=== PATIENT | female | born 1985 | race African-American/Black ===

== ENCOUNTER 2018-11-29 10:30 | Emergency (ER) | payer OTHER ==
[~2018-11-29] VITALS: Ht 165.1 cm; Wt 112.0 kg
[2018-11-29 10:36] VITALS: BP 161/95
[2018-11-29] MEDS ORDERED: LIDOCAINE 1% Multi-Dose 20 ML VIAL. IJ ONE (10:45)
[2018-11-29] MEDS ORDERED: LIDOCAINE 1% Multi-Dose 20 ML VIAL. ONE ×2 (10:47→10:49)
--- NOTE | 2018-11-29 10:49 | ED.ADGEN ---
Past History Past Medical History: Anxiety, Depression Past Surgical History: No Surgical History Alcohol Use: None Drug Use: None Laceration Repair Lac Repair Indication: laceration to left thumb Procedure: The patient was placed in the appropriate position and anesthesia around the lac with 1% lidocaine. The area was then cleansed with hibiclins and copious amounts of irrigation. The laceration was closed with 5, 4-0 prolene sutures. The wound area was then dressed with nonbinding gauze Total repaired wound length: 2cm. The patient tolerated the procedure well Complications: none Adult General HPI HPI 32-year-old female presents to the emergency department after laceration to left thumb at home. Patient states she was grabbing a bowl but subsequently had fallen, hitting the counter and breaking. Patient states she is up-to-date with her shots. She denies any headache, visual change, nausea, vomiting, chest pain, shortness of breath. She denies any numbness or tingling appreciated to her left thumb. She has equal strength appreciated. All other ROS negative unless documented in HPI Review of Systems Review of Systems See Above Current Medications Current Medications Current Medications Medications (Trade) Dose Ordered Sig/Romi Start Time Stop Time Status Last Admin Dose Admin Lidocaine HCl 20 ml STK-MED ONCE 11/29/18 10:49 11/29/18 10:49 DC Allergies Allergies Allergies Coded Allergies Type Severity Reaction Last Updated Verified No Known Drug Allergies 11/29/18 No Physical Exam Physical Exam See Above Constitutional: Well developed, well nourished, no acute distress, non-toxic appearance. [] Cardiovascular:Heart rate regular rhythm, no murmur [] Lungs & Thorax: Bilateral breath sounds clear to auscultation [] Skin: Warm, dry, laceration appreciated to left thumb Back: No tenderness, no CVA tenderness. [] Extremities: No tenderness, no cyanosis, no edema. [] Neurologic: Alert and oriented X 3, no focal deficits noted. [] Psychologic: Affect normal, judgement normal, mood normal. [] Current Patient Data Vital Signs Vital Signs Date Time Temp Pulse Resp B/P (MAP) Pulse Ox O2 Delivery O2 Flow Rate FiO2 11/29/18 10:36 98.1 90 18 99 Room Air EKG EKG [] Radiology/Procedures Radiology/Procedures [] Course & Med Decision Making Course & Med Decision Making Pertinent Labs and Imaging studies reviewed. (See chart for details) []32-year-old female presents to the emergency department after laceration to left thumb at home. Patient states she was grabbing a bowl but subsequently had fallen, hitting the counter and breaking. Patient states she is up-to-date with her shots. She denies any headache, visual change, nausea, vomiting, chest pain, shortness of breath. She denies any numbness or tingling appreciated to her left thumb. She has equal strength appreciated. See suture repair. remove sutures in 7 - 10 days. Watch for signs of infection - discussed with patient at bedside regarding return precautions Final Impression Final Impression [] Problems: (1) Laceration of thumb Qualifiers: Qualified Codes: S61.012A - Laceration without foreign body of left thumb without damage to nail, initial encounter Dragon Disclaimer [employer] Disclaimer This electronic medical record was generated, in whole or in part, using a voice recognition dictation system. LUCINA VILLALPANDO MD Nov 29, 2018 10:49
== END 2018-11-29 11:48 | disposition home or self-care (01) ==
LOC: ER 10:30
DX: S61.012A Laceration without foreign body of left thumb without damage to nail, initial encounter (principal); F41.9 Anxiety disorder, unspecified; F32.9 Major depressive disorder, single episode, unspecified; W25.XXXA Contact with sharp glass, initial encounter; Y93.89 Activity, other specified; Y92.098 Other place in other non-institutional residence as the place of occurrence of the external cause; Y99.8 Other external cause status
CPT/HCPCS: 12001; 99283

== ENCOUNTER → 2018-11-30 | Outpatient (CLI) | payer OTHER ==
[2018-11-29 10:36] VITALS: BP 161/95
--- NOTE | 2018-11-30 13:41 | RAD ---
EXAM: Pelvic sonogram. HISTORY: Dysmenorrhea. TECHNIQUE: Transabdominal and transvaginal sonographic imaging of the pelvis was performed. COMPARISON: None. FINDINGS: The uterus measures 11.2 x 6.1 cm. The uterine myometrium is diffusely heterogeneous in echotexture and echogenicity. There are superimposed uterine fibroids, the largest of which is seen within the right lower uterine segment measuring 2.2 cm. The endometrial stripe measures 10 mm in thickness. The ovaries are normal in size and demonstrate normal blood flow. There is a small amount of simple fluid within the posterior cul-de-sac. IMPRESSION: 1. Heterogeneous enlarged uterus containing multiple fibroids, the largest of which measures 2.2 cm within the right uterine fundus. 2. Normal appearing ovaries. 3. Small amount of nonspecific pelvic free fluid. Electronically signed by: Hayley Terrazas MD (11/30/2018 1:38 PM) [id number]
== END | disposition home or self-care (01) ==
LOC: US 08:52
PROVIDERS: ATTEND Obstetrics & Gynecology
DX: N85.2 Hypertrophy of uterus (principal); D25.9 Leiomyoma of uterus, unspecified; N92.0 Excessive and frequent menstruation with regular cycle; N94.6 Dysmenorrhea, unspecified; N92.6 Irregular menstruation, unspecified
CPT/HCPCS: 76830; 76856